=== PATIENT | male | born 1985 | race Two or more races ===

== ENCOUNTER 2017-03-19 15:11 | Emergency (ER) | payer OTHER ==
[2017-03-19 15:17] VITALS: BP 131/78
[2017-03-19] MEDS ORDERED: Sodium Chloride 0.9% 500 ML IV ONE (15:20)
[2017-03-19] MEDS ORDERED: HYDROmorphone 0.5 MG/0.5 ML Syringe IVPUSH ONE (15:21)
[2017-03-19] MEDS ORDERED: Ondansetron 4 MG/2 ML SDV IVPUSH ONE (15:21)
[2017-03-19] MEDS ORDERED: Diphtheria,Pertussis(Acell),Tetanus Vaccine 0.5 ML SDV inactive IM ONE (15:24)
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
--- NOTE | 2017-03-20 10:53 | CR ---
Left tibia and fibula: AP and lateral views of the left tibia and fibula were obtained utilizing portable technique. No fracture or other bony abnormality is seen. Impression: 1. No abnormality is identified on left tibia and fibula study. Diagnostic code #1
--- NOTE | 2017-03-20 10:53 | CR ---
Right tibia and fibula: AP and lateral views of the right tibia and fibula were obtained. Comparison: No previous study. No fracture or other bony abnormality is identified. Impression: 1. No abnormality is identified on right tibia and fibula exam. Diagnostic code #1
== END 2017-03-19 17:45 | disposition home or self-care (01) ==
LOC: JD.ED 15:11
DX: S80.02XA Contusion of left knee, initial encounter (principal); S80.01XA Contusion of right knee, initial encounter; S80.211A Abrasion, right knee, initial encounter; Z79.899 Other long term (current) drug therapy; V59.9XXA Occupant (driver) (passenger) of pick-up truck or van injured in unspecified traffic accident, initial encounter; Y92.69 Other specified industrial and construction area as the place of occurrence of the external cause; Y99.0 Civilian activity done for income or pay; Z23 Encounter for immunization
CPT/HCPCS: 36415; 73590; 80053; 82550; 85025; 90471; 96361; 96374; 96375; 99284; J1170; J2405; J7040; 90715